=== PATIENT | female | born 1945 | race Asian ===

== ENCOUNTER → 2017-12-13 | Outpatient (CLI) | payer MEDICARE ==
[~2017-12-13] MED LIST: LEVO75TA59; SIMV40TA3
== END | disposition home or self-care (01) ==
LOC: CFH 07:33
PROVIDERS: ATTEND Internal Medicine Gastroenterology
DX: K76.0 Fatty (change of) liver, not elsewhere classified (principal); K59.00 Constipation, unspecified; E78.5 Hyperlipidemia, unspecified
CPT/HCPCS: 76700